=== PATIENT | female | born 1945 | race Caucasian/White ===

== ENCOUNTER 2018-03-10 14:11 | Inpatient (IN) ==
--- NOTE | 2018-03-10 14:55 | Emergency Department Note ---
Disposition Clinical Impression: Lymphadenopathy, mediastinal, Mass of left lung Community acquired pneumonia Qualifiers: Laterality: left Lung location: upper lobe of lung Qualified Code(s): J18.1 - Lobar pneumonia, unspecified organism Disposition: Admitted As Inpatient Condition: Good Referrals: Anmol Dee DO [Primary Care Provider] - Forms: ED Satisfaction Letter Time of Disposition: 17:23 General Adult HPI - General Chief complaint: ED Shortness of Breath/Dyspnea Stated complaint: cough Time Seen by Provider: 03/10/18 14:15 Source: patient Mode of arrival: ambulatory Limitations: no limitations Nursing Notes Reviewed: Yes Vital Signs Reviewed: Yes - History of Present Illness HPI Narrative: Female patient with a one-month history of cough. She states that it is generally nonproductive however occasionally she can get a small amount of sputum up. She states that she has not had a fever. She has had one episode of chills throughout this whole month. She does report over the past week she has had some left-sided chest pain associated with her shortness of breath as well. She denies any cardiac history. She does report a history only of hypercholesterolemia. She denies any recent travels. She denies any estrogen use. She is not a smoker. She states that ambulating does not make it worse. However occasionally whenever she leans back on the bed she does have the left- sided chest pain reproduced. She has not tried anything to make this better. Nothing really makes it worse. Pain Scale: 9 - Related Data Home Medications Medication Instructions Recorded Confirmed Amitriptyline [Elavil] 50 mg PO HS 05/05/16 07/14/16 Simvastatin [Zocor] 40 mg PO HS 05/05/16 07/14/16 Rhinocort Allergy 2 spray IN DAILY 07/14/16 07/14/16 Amitriptyline 05/21/17 Aspirin 05/21/17 Biotin 05/21/17 Calcium Magnesium Zinc 05/21/17 Cinnamon 05/21/17 Cipro 05/21/17 DiphenhydraMINE 05/21/17 Fish Oil 05/21/17 Fluticasone Propionate 05/21/17 Garlic 05/21/17 Ginkgo Biloba 05/21/17 Ketoconazole 2% CRM 05/21/17 Nexium 05/21/17 Vitamin D3 05/21/17 Vitamin E 05/21/17 Zyrtec 05/21/17 Previous Rx's Medication Instructions Recorded Sulfamethoxazole/Trimeth DS 1 each PO BID #14 tablet 03/28/17 [Bactrim DS] Acetaminophen [Tylenol] 500 mg PO Q6HR PRN #20 tablet 05/21/17 Acyclovir [Zovirax] 800 mg PO 5XD 7 Days #35 tablet 05/21/17 Capsaicin [High Potency Capsaicin] 42.5 gm TP BID #1 cream..g. 05/21/17 Allergies Allergy/AdvReac Type Severity Reaction Status Date / Time itraconazole [From Sporanox] Allergy Hives/ hot Verified 03/10/18 14:14 All systems ED: reviewed and negative except as stated. Review of Systems: As Per HPI Constitutional: Reports: chills (Occasional.). Denies: fever Cardiovascular: Reports: chest pain (Left-sided for the past week. Associated with taking a deep breath.). Denies: palpitations, dyspnea on exertion, syncope Respiratory: Reports: cough (Occasional.), dyspnea (For the past month.), sputum production (Occasional.) Gastrointestinal: Denies: abdominal pain, nausea, vomiting, diarrhea Genitourinary: Denies: urgency, dysuria, frequency, hematuria Musculoskeletal: Denies: back pain, neck pain Neurological: Denies: headache Past Medical History - Past Medical History Attestation: Yes The following information was validated with the patient. Source: patient Medical history: Reports: hyperlipidemia Surgical history: Reports: IDALMIS/BSO Psychiatric history: Reports: no psych history WAREHOUSE ENGINEER history: Reports: no WAREHOUSE ENGINEER history - Social History Smoking Status: Never smoker Smokeless Tobacco Status: No Alcohol use: Reports: none Drug use: Reports: none Physical Exam - General Limitations: no limitations General appearance: alert, in no apparent distress - Head Head exam: atraumatic, normocephalic, normal inspection - Eye Eye exam: Present: normal appearance, PERRL, EOMI - ENT ENT exam: normal exam, normal oropharynx, mucous membranes moist - Neck Neck exam: Present: normal inspection, full ROM, trachea midline - Chest Chest inspection: Present: normal inspection, symmetric chest wall rise - Respiratory Respiratory exam: Present: normal lung sounds bilaterally. Absent: respiratory distress, accessory muscle use - Cardiovascular Cardiovascular exam: Present: regular rate, normal rhythm, normal heart sounds - Abdominal Exam Abdominal exam: Present: soft, Non-Tender. Absent: tenderness, distention, guarding, rebound, rigidity, organomegaly, Aelgria's sign, Rovsing's sign, tenderness at McBurney's Point - Extremities Exam Extremities exam: Present: normal inspection, full ROM, normal capillary refill. Absent: tenderness, pedal edema - Neurological Exam Neurological exam: Present: alert, oriented X3 - Psychiatric Psychiatric exam: Present: normal affect, normal mood - Skin Skin exam: Present: warm, dry, intact, normal color. Absent: rash, cyanosis, diaphoresis Course Course Narrative: Female patient resting comfortably in bed and does not appear to be in any distress. Lung sounds are clear bilaterally. No wheezing noted. She is not tachycardic. She is not currently on any type of estrogen therapy. However p atient cannot be worked negative that she is over 65. Patient appears well with no history of DVT or PE. No history of long travel. We will get a basic lab workup on patient inclusive of a d-dimer which was elevated. We discussed this with the patient and will get a CTA of patient's chest. Patient does have a pneumonia on the x-ray however this is concerning at states is a wedge-shaped pattern. We will continue with the CTA to further investigate for pulmonary embolus. - Reevaluation(s) Reevaluation #1: Patient CT concerning for atypical pneumonia with loculated lesions. Concern for possible mass under this area. We will admit patient to hospital for further evaluation of this and to ensure resolution of her symptoms. She is agreeable with this plan. Patient was placed on cefepime for atypical coverage of the pneumonia. - Consultations Consultation #1: Dr Machado accepted Pt in stable condition Time: 17:39 Vital Signs Temperature 98.5 F 03/10/18 14:12 Pulse Rate 92 03/10/18 14:12 Respiratory Rate 18 03/10/18 14:12 Blood Pressure 163/78 03/10/18 14:12 O2 Sat by Pulse Oximetry 95 03/10/18 14:12 Temperature 98.5 F 03/10/18 14:19 Pulse Rate 79 03/10/18 16:15 Respiratory Rate 18 03/10/18 16:15 Blood Pressure 148/72 03/10/18 16:15 O2 Sat by Pulse Oximetry 100 03/10/18 16:15 Oxygen Delivery Oxygen Delivery Room Air Medical Decision Making - Medical Records Medical records reviewed: Yes I reviewed the patient's medical records. - Lab Data Lab results reviewed: Yes I reviewed the patient's lab results. Result diagrams: 03/10/18 14:45 03/10/18 14:45 Lab Results 03/10/18 03/10/18 03/10/18 Range/Units 14:45 14:45 14:45 WBC 8.9 (4.3-11.1) K/mcL RBC 3.86 (3.82-4.97) M/mcL Hgb 10.2 L (11.5-15.4) g/dL Hct 32.4 L (35.3-44.9) % MCV 83.9 (83.0-100.0) fL MCH 26.4 L (28.0-33.3) pg MCHC 31.5 L (31.6-35.5) g/dL RDW 13.5 (11.5-14.5) % Plt Count 278 (140-400) K/mcL MPV 9.4 (9.4-12.4) fL Immature Gran % 0.6 (0-4) % Seg Neutrophils % 81.9 % Lymphocytes % 10.6 % Monocytes % 5.3 % Eosinophils % 1.1 % Basophils % 0.5 % Neutrophils # 7.3 (1.6-8.9) K/mcL Lymphocytes # 0.9 (0.6-4.6) K/mcL Monocytes # 0.5 (0.0-1.3) K/mcL Eosinophils # 0.1 (0.0-0.6) K/mcL Basophils # 0.0 (0.0-0.2) K/mcL D-Dimer 1211 H (0-500) ng/mLFEU Sodium 137 (136-145) mEq/L Potassium 3.6 (3.5-5.1) mEq/L Chloride 102 (98-107) mEq/L Carbon Dioxide 27 (23-29) mEq/L BUN 10 (8-23) mg/dL Creatinine 0.76 (0.60-1.20) mg/dL Est GFR ( Amer) > 60 (> 60) Est GFR (Non-Af Amer) > 60 (> 60) BUN/Creatinine Ratio 13 (6-26) Glucose 148 H (70-105) mg/dL Calculated Osmolality 286 (280-300) Lactic Acid (0.5-2.2) mmol/L Calcium 8.9 (8.6-10.3) mg/dL Troponin I < 0.03 (< 0.04) ng/mL B-Natriuretic Peptide (Less than 100) pg/mL 03/10/18 03/10/18 Range/Units 14:45 14:45 WBC (4.3-11.1) K/mcL RBC (3.82-4.97) M/mcL Hgb (11.5-15.4) g/dL Hct (35.3-44.9) % MCV (83.0-100.0) fL MCH (28.0-33.3) pg MCHC (31.6-35.5) g/dL RDW (11.5-14.5) % Plt Count (140-400) K/mcL MPV (9.4-12.4) fL Immature Gran % (0-4) % Seg Neutrophils % % Lymphocytes % % Monocytes % % Eosinophils % % Basophils % % Neutrophils # (1.6-8.9) K/mcL Lymphocytes # (0.6-4.6) K/mcL Monocytes # (0.0-1.3) K/mcL Eosinophils # (0.0-0.6) K/mcL Basophils # (0.0-0.2) K/mcL D-Dimer (0-500) ng/mLFEU Sodium (136-145) mEq/L Potassium (3.5-5.1) mEq/L Chloride (98-107) mEq/L Carbon Dioxide (23-29) mEq/L BUN (8-23) mg/dL Creatinine (0.60-1.20) mg/dL Est GFR ( Amer) (> 60) Est GFR (Non-Af Amer) (> 60) BUN/Creatinine Ratio (6-26) Glucose (70-105) mg/dL Calculated Osmolality (280-300) Lactic Acid 1.0 (0.5-2.2) mmol/L Calcium (8.6-10.3) mg/dL Troponin I (< 0.04) ng/mL B-Natriuretic Peptide 52 (Less than 100) pg/mL - Radiology Data Radiology results reviewed: Yes I reviewed the patient's radiology results. Chest X-Ray 03/10/18 14:54 IMPRESSION: Left upper lobe pneumonia. Follow-up is recommended to ensure resolution D/ / Artie Lala MD / Artie Lala MD Interpreting Provider: Artie Lala MD - EKG Data EKG #1 EKG attestation: Yes I reviewed and interpreted this EKG. EKG results narrative: Normal sinus rhythm at a rate 85. IN interval is 148. QRS duration is 83. QT is 360. QTC is 428. No signs of acute ischemia. No signs of Brugada or WPW. No previous EKG to compare to. Attestation Statement - Attestation Attestation: I examined this patient and my medical decision-making was reviewed with the Resident Physician, Dr. Glaser. I agree with the documented findings, disposition and treatment plan as described except to the extent set forth below. Patient is a pleasant 72-year-old white female nonsmoker who presents the emergency permit today with complaints of a one-month history of cough. Patient states his been nonproductive started out as a "tickle in her throat", has progressed to a pretty regular coarse sounding cough area patient denies any fevers or chills, no preceding URI symptoms, no associated chest pain but she does feel some pain in her left posterior chest wall worse with coughing. Patient denies any hemoptysis or posttussive emesis. Patient denies any abdominal pain nausea vomiting bowel changes no flank pain. Patient denies any lower extremity edema or pain. No prior history of PE or DVT and no prior card iac history. Patient is fairly healthy with the exception of a history of high cholesterol. I agree with patient's physical exam findings as documented. Vital signs are stable on arrival patient's resting comfortably in no acute distress lungs are clear and she is having no signs of respiratory distress or stridor. EKG shows normal sinus rhythm with no acute ischemia. Patient underwent full lab evaluation including troponin and d-dimer. Patient's d-dimer was significantly elevated so we proceeded with a chest CT. Two-view chest x-ray did show what looked like a left upper lobe pneumonia although patient's white count is within normal limits and remainder of her labs are unremarkable. Patient's CTA showed findings concerning for possible lung mass with associated phlegmonous changes in the left lower lobe and both hilar and mediastinal adenopathy. Recommend PET scan and further evaluation for possible lung mass. Patient's hemodynamically stable at this time and no sign of respira tory distress, patient will be admitted to the hospitalist service for further evaluation and management.
[2018-03-10 15:10] LABS: Basophils % 0.5 %; Eosinophils # 0.1 K/mcL (0.0-0.6); Eosinophils % 1.1 %; Hematocrit 32.4 % (35.3-44.9); Hemoglobin 10.2 g/dL (11.5-15.4); Immature Granulocytes % 0.6 % (0-4); Lymphocytes # 0.9 K/mcL (0.6-4.6); Lymphocytes % 10.6 %; Mean Corpuscular HGB Conc 31.5 g/dL (31.6-35.5); Mean Corpuscular Hemoglobin 26.4 pg (28.0-33.3); Mean Corpuscular Volume 83.9 fL (83.0-100.0); Mean Platelet Volume 9.4 fL (9.4-12.4); Monocytes # 0.5 K/mcL (0.0-1.3); Monocytes % 5.3 %; Neutrophils # 7.3 K/mcL (1.6-8.9); Platelet Count 278 K/mcL (140-400); Red Blood Count 3.86 M/mcL (3.82-4.97); Red Cell Distribution Width 13.5 % (11.5-14.5); Segmented Neutrophils % 81.9 %
[2018-03-10 15:33] LABS: BUN/Creatinine Ratio 13 (6-26); Blood Urea Nitrogen 10 mg/dL (8-23); Calcium 8.9 mg/dL (8.6-10.3); Carbon Dioxide 27 mEq/L (23-29); Chloride 102 mEq/L (98-107); Glucose 148 mg/dL (70-105); Osmolality,Calculated 286 (280-300); Potassium 3.6 mEq/L (3.5-5.1); Sodium 137 mEq/L (136-145); eGFR For Non-African Americans > 60 (> 60)
[2018-03-10] MEDS ORDERED: Isovue-370 500 ML INFUS..BTL IV ONE (15:33)
[2018-03-10 15:34] LABS: Troponin I < 0.03 ng/mL (< 0.04)
[2018-03-10] MEDS ORDERED: Cefepime HCl 1,000 MG in 0.9 % Sodium Chloride Mini Bag 100 ML IVPB STA (16:43)
--- NOTE | 2018-03-10 21:10 | Internal Med History&Physical ---
Date of Encounter: 03/10/18 Time of Encounter: 21:10 Internal Medicine - H&P: HPI Chief complaint: Cough History of present illness: Ms. Van is a 72 year old female with a past medical history of hypertension and GERD who presents to the ED due to complains of a one-month history of nonproductive cough. The reason for coming into the hospital today was that her cough has not been improving. She also notes pleuritic chest pain with deep inspiration for the past week. The pain is located between her left shoulder blade and spine. Patient denies any dyspnea or shortness of breath except after coughing fits but does report recent episodes of waking up in sweats. She is a past smoker with a 2 pack smoking history for approximately 24 years. Patient quit in March 2010. Patient denies any hemoptysis or weight loss. Patient had a breast screening in September 2017 which was negative for any malignancy. Patient noted to have an elevated d-dimer and a CTA of the chest was performed which demonstrated no evidence of PE, however a 3.8 cm left upper lobe cons olidation was noted with mediastinal and left hilar adenopathy. Labs were notable for absent leukocytosis and mild anemia. Patient states she is up-to-date on her colonoscopy screenings. Past Med Surg Social Fam HX - Past Medical History Medical history: arthritis, hyperlipidemia, hypertension, other Additional medical history: scoliosis Psychiatric history: no psych history - Past Surgical History Surgical History: IDALMIS/BSO Additional surgical history: tubal ligation - Social History Smoking Status: Former smoker Smokeless Tobacco Status: No Alcohol use: none, rarely Drug use: none - Family History Mother Living Status: Still Living Hx Family Cancer: Yes (leukemia, lymphoma, colon cancer) Internal Medicine - H&P: Meds Amitriptyline [Elavil] 50 mg PO HS 05/05/16 [History] Simvastatin [Zocor] 40 mg PO HS 05/05/16 [History] Rhinocort Allergy 2 spray IN DAILY 07/14/16 [History] Sulfamethoxazole/Trimeth DS [Bactrim DS] 1 each PO BID #14 tablet 03/28/17 [Rx] Acetaminophen [Tylenol] 500 mg PO Q6HR PRN #20 tablet 05/21/17 [Rx] Acyclovir [Zovirax] 800 mg PO 5XD 7 Days #35 tablet 05/21/17 [Rx] Amitriptyline 05/21/17 [History] Aspirin 05/21/17 [History] Biotin 05/21/17 [History] Calcium Magnesium Zinc 05/21/17 [History] Capsaicin [High Potency Capsaicin] 42.5 gm TP BID #1 cream..g. 05/21/17 [Rx] Cinnamon 05/21/17 [History] Cipro 05/21/17 [History] DiphenhydraMINE 05/21/17 [History] Fish Oil 05/21/17 [History] Fluticasone Propionate 05/21/17 [History] Garlic 05/21/17 [History] Ginkgo Biloba 05/21/17 [History] Ketoconazole 2% CRM 05/21/17 [History] Nexium 05/21/17 [History] Vitamin D3 05/21/17 [History] Vitamin E 05/21/17 [History] Zyrtec 05/21/17 [History] Allergy/AdvReac Type Severity Reaction Status Date / Time itraconazole [From Sporanox] Allergy Hives/ hot Verified 03/10/18 14:14 All Systems PM: A 10-system review of systems was performed and is negative for pertinent findings except as documented above in the HPI. - Constitutional Constitutional: no chills, no fever(s), no night sweats - EENT Eyes: no change in vision, no discharge, no pain, no photophobia Ears: no ear discharge, no ear pain, no tinnitus Nose, mouth and throat: no dysphagia, no nasal discharge, no neck pain, no sore throat - Cardiovascular Cardiovascular ROS IM: no chest pain, no diaphoresis, no dyspnea, no lightheadedness, no palpitations, no syncope - Respiratory Respiratory: no cough, no dyspnea, no wheezing, no excessive phlegm production - Gastrointestinal Gastrointestinal: no abdominal pain, no diarrhea, no hematemesis, no hematochezia, no melena, no nausea, no vomiting - Genitourinary Genitourinary: no change in urinary stream, no dysuria, no flank pain, no hematuria - Musculoskeletal Musculoskeletal ROS IM: no numbness, no tingling - Integumentary Integumentary IM: no rash, no unusual bruising - Neurological Neurological ROS: no confusion, no convulsions, no focal weakness, no numbness, no tingling, no tremor(s) - Hematologic/Lymphatic Hematologic/Lymphatic: no easy bruising - Constitutional Vitals: Temp Pulse Resp BP Pulse Ox 98.3 F 86 16 147/74 95 03/10/18 20:04 03/10/18 20:04 03/10/18 20:04 03/10/18 20:04 03/10/18 20:04 Exam: General: Alert and oriented 3; lying in bed pleasant and in no acute distress Skin:Normal color, no rash, no lesions. HEENT:EOM, pupils equal, round and reactive. Cardiovascular:Normal S1 & S2, no rubs, murmurs or gallops. No JVD. Pulse regular. Lungs:Normal breath sounds, no wheezes or crackles. Abdomen:Soft, non-tender, no rigidity. Extremities:No deformity, no edema or tenderness, no joint swelling or clubbing. Neurological:Normal cognition and motor skills. Pulses:Carotid and radial pulses normal +2. Rest of the physical exam is non contributory Internal Med - H&P Results - Labs CBC & Chem 7: 03/10/18 14:45 03/10/18 14:45 Labs: Short CBC 03/10/18 Range/Units 14:45 WBC 8.9 (4.3-11.1) K/mcL Hgb 10.2 L (11.5-15.4) g/dL Hct 32.4 L (35.3-44.9) % Plt Count 278 (140-400) K/mcL Neutrophils # 7.3 (1.6-8.9) K/mcL BMP 03/10/18 14:45 Sodium 137 Potassium 3.6 Chloride 102 Carbon Dioxide 27 BUN 10 Creatinine 0.76 Glucose 148 H Calcium 8.9 Cardiac Enzymes 03/10/18 Range/Units 14:45 Troponin I < 0.03 (< 0.04) ng/mL - Impressions ITS Impressions Chest X-Ray 03/10/18 14:54 IMPRESSION: Left upper lobe pneumonia. Follow-up is recommended to ensure resolution D/ / Artie Lala MD / Artie Lala MD Interpreting Provider: Artie Lala MD Chest CTA 03/10/18 15:33 IMPRESSION: No evidence pulmonary embolism. Small left pleural effusion with multifocal left lung consolidation, greatest in the left upper lobe. There is an area of soft tissue attenuation/masslike consolidation within left upper lobe consolidation measuring about 3.8 cm without traversing vessels; although this could represent phlegmonous change, short interval follow-up following treatment versus PET-CT could be considered. Mediastinal and left hilar adenopathy. D/ / Guera Wright Cha, MD / Guera Wright Cha, MD Interpreting Provider: Guera Wright Cha, MD - Assessment and plan (1) Cough Current Visit: Yes Status: Acute Assessment and plan: Patient presents with one-month history of nonproductive cough and has not been improving associated with one week history of pleuritic chest pain with deep inspiration located between left scapula and spine. Patient has no fever but does report several episodes of waking up with night sweats. Absent leukocytosis. CT scan of the chest reveals a small left pleural effusion with multifocal left lung consolidation latest in the left upper lobe measuring about 3.8 cm and mediastinal and left hilar adenopathy. Given the chronicity of the patient's symptoms and absent fever and white count I have low suspicion for pneumonia at this time. It may be some other form of atypical infection. However, given patient's significant past smoking history, pleuritic chest pain, recent episodes of night sweats and CT scan findings, I am concerned for pos sible underlying malignancy. Patient received 1 dose of cefepime in the ED. At this time we will hold off any further antibiotics. We will obtain pulmonary consultation for further evaluation. We will follow both blood cultures in the meantime as well. (2) Mass of left lung Current Visit: Yes Status: Acute Assessment and plan: CT scan shows left upper lobe consolidation measuring about 3.8 cm without transversing vessels. Per radiology this may be also represent phlegmonous change PET/CT in addition to short interval follow-up recommended. See above for plan of care. (3) Lymphadenopathy, mediastinal Current Visit: Yes Status: Acute Assessment and plan: Please see above. (4) DVT prophylaxis Current Visit: Yes Status: Acute Assessment and plan: Subcutaneous heparin - Time Spent With Patient Total time spent is greater than 50% in coordination of care (as documented) at patient's floor/unit and/or counseling patient:
[2018-03-10] MEDS ORDERED: Acetaminophen 325 MG TABLET PO PRN (21:52)
[2018-03-10] MEDS ORDERED: Naloxone 0.4 MG/ML INJ IVP PRN (21:52)
[2018-03-10] MEDS: *HR* Heparin 5,000 UNIT/ML VIAL SQ SCH (23:01)
[2018-03-11 03:25] LABS: Basophils % 0.3 %; Eosinophils # 0.1 K/mcL (0.0-0.6); Hematocrit 31.5 % (35.3-44.9); Hemoglobin 10.1 g/dL (11.5-15.4); Immature Granulocytes % 0.6 % (0-4); Lymphocytes # 1.3 K/mcL (0.6-4.6); Lymphocytes % 12.4 %; Mean Corpuscular HGB Conc 32.1 g/dL (31.6-35.5); Mean Corpuscular Hemoglobin 26.5 pg (28.0-33.3); Mean Corpuscular Volume 82.7 fL (83.0-100.0); Mean Platelet Volume 9.5 fL (9.4-12.4); Monocytes # 0.6 K/mcL (0.0-1.3); Monocytes % 5.7 %; Neutrophils # 8.1 K/mcL (1.6-8.9); Platelet Count 298 K/mcL (140-400); Red Blood Count 3.81 M/mcL (3.82-4.97); Red Cell Distribution Width 13.6 % (11.5-14.5)
[2018-03-11 03:44] LABS: Alanine Aminotransferase 36 Units/L (7-52); Albumin 3.7 g/dL (3.5-5.7); Albumin/Globulin Ratio 1.2 (1.1-2.2); Alkaline Phosphatase 112 Units/L (34-104); Aspartate Amino Transferase 24 Units/L (13-39); BUN/Creatinine Ratio 16 (6-26); Bilirubin,Total 0.4 mg/dL (0.3-1.0); Blood Urea Nitrogen 11 mg/dL (8-23); Carbon Dioxide 23 mEq/L (23-29); Chloride 102 mEq/L (98-107); Globulin 3.2 g/dL (2.4-3.5); Glucose 131 mg/dL (70-105); Osmolality,Calculated 281 (280-300); Potassium 3.5 mEq/L (3.5-5.1); Sodium 135 mEq/L (136-145); Total Protein 6.9 g/dL (6.4-8.9); eGFR For Non-African Americans > 60 (> 60)
[2018-03-11] MEDS: *HR* Heparin 5,000 UNIT/ML VIAL SQ SCH ×3 (08:07→23:52)
--- NOTE | 2018-03-11 09:38 | Pulmonology Consult Note ---
Date of Encounter: 03/11/18 Time of Encounter: 09:00 Assessment and Plan (1) Pneumonia Current Visit: Yes Status: Acute Patient presenting with left upper lobe consolidation looks like lung mass in the midst of consolidation. To continue broad-spectrum antibiotics depends upon the clinical response will soon de-escalate antibiotics. Since this recurrent acute presentation and patient has chronic cough loss of appetite concerned for malignancy as patient has background emphysematous changes with former smoker . Patient was not nothing by mouth today and was evident in a bronchoscopy. We will discuss with oncoming tie worker about bronchoscopy we will keep her nothing by mouth after midnight put her on the schedule. Qualifiers: Pneumonia type: due to unspecified organism Laterality: left Lung location: upper lobe of lung Qualified Code(s): J18.1 - Lobar pneumonia, unspecified organism (2) Mass of left lung Current Visit: Yes Status: Acute Patient has risk factors for malignancy we will keep her nothing by mouth after midnight for bronchoscopy in the morning . Gave options to patient to wait for 2 weeks after pneumonia treatment on proceed with bronchoscopy at this point patient opted to undergo bronchoscopy tomorrow and she would like to get dis charge. The benefit and risk of bronchoscopy was explained.. (3) COPD (chronic obstructive pulmonary disease) Current Visit: Yes Status: Acute Patient has centrilobular emphysematous changes with need schedule bronchodilators since patient has some mild wheezes will add a short burst of prednisone. 5 days Qualifiers: COPD type: emphysema Emphysema type: centrilobular Qualified Code(s): J43.2 - Centrilobular emphysema History of Present Illness Consult date: 03/11/18 Requesting physician: Anthony Garrison Reason for consult: pneumonia, abnormal CXR/CT Chief complaint: Cough and chest pain History of present illness: 72-year-old female with past medical history for former smoker smoked 40 pack years stopped in 2009 comes with 1 month history of cough more worsen 2-3 weeks he says the cough got worse and over the past month not much sputum production denies any hemoptysis of 34 days her left-sided chest pain got worse and brought to the hospital CTA showed no does not pulmonary embolism showed left upper lobe apical posterior region a big mass like consolidation pulmonary was consult did for the evaluation mass like consolidation patient also admits some loss of appetite not much loss of weight denies any constitutional symptoms denies any palpitation or syncope denies any GERD or neuro symptoms denies any headache or eye symptoms. Past Med Surg Social Fam HX - Past Medical History Medical history: arthritis, hyperlipidemia, hypertension, other Additional medical history: scoliosis Psychiatric history: no psych history - Past Surgical History Surgical History: IDALMIS/BSO Additional surgical history: tubal ligation - Social History Smoking Status: Former smoker Smokeless Tobacco Status: No Alcohol use: none, rarely Drug use: none - Family History Mother Living Status: Still Living Hx Family Cancer: Yes (leukemia, lymphoma, colon cancer) Medications and Allergies Amitriptyline [Elavil] 50 mg PO HS 03/11/18 [History] Esomeprazole Magnesium [Nexium] 20 mg PO HS 03/11/18 [History] Ketotifen Fumarate [Eye Itch Relief] 5 ml OP BID 03/11/18 [History] Simvastatin [Zocor] 40 mg PO HS 03/11/18 [History] Triamcinolone Acetonide [Nasacort] 2 spray NS HS 03/11/18 [History] Allergy/AdvReac Type Severity Reaction Status Date / Time itraconazole [From Sporanox] Allergy Hives/ hot Verified 03/10/18 14:14 All Systems: The remainder of the systems were reviewed and are negative Physical Examination Vital Signs: Vital Signs, Last 4 Hours Temp Pulse Resp BP Pulse Ox 03/11/18 08:24 92 03/11/18 07:37 99.2 F 92 18 148/65 92 Auscultation: bilateral: wheezes (mimimal scattered wheezes) Results - Laboratory Findings CBC and BMP: 03/11/18 02:45 03/11/18 02:45 PT/INR, D-dimer D-Dimer 1211 ng/mLFEU (0-500) H 03/10/18 14:45 Abnormal lab findings: Abnormal lab results RBC 3.81 M/mcL (3.82-4.97) L 03/11/18 02:45 Hgb 10.1 g/dL (11.5-15.4) L 03/11/18 02:45 Hct 31.5 % (35.3-44.9) L 03/11/18 02:45 MCV 82.7 fL (83.0-100.0) L 03/11/18 02:45 MCH 26.5 pg (28.0-33.3) L 03/11/18 02:45 D-Dimer 1211 ng/mLFEU (0-500) H 03/10/18 14:45 Sodium 135 mEq/L (136-145) L 03/11/18 02:45 Glucose 131 mg/dL (70-105) H 03/11/18 02:45 Alkaline Phosphatase 112 Units/L (34-104) H 03/11/18 02:45 - Microbiology Findings Microbiology Findings: Microbiology, Last 48 Hours 03/10/18 17:50 Blood Culture - Preliminary Peripheral Venipuncture Culture is incubating and being continuously monitored for growth. Final report to follow. 03/10/18 17:55 Blood Culture - Preliminary Peripheral Venipuncture Culture is incubating and being continuously monitored for growth. Final report to follow. - Clinical Findings Intake & Output: Intake & Output 03/10/18 03/11/18 03/11/18 23:59 07:59 15:59 Intake Total 550 / 550 240 / 240 Output Total 750 / 750 0 / 0 Balance 550 / 550 -750 / -750 240 / 240 Weight 62.1 kg 59.7 kg Consult Discharge Plan - Plan Referrals: Anmol Dee DO [Primary Care Provider] -
--- NOTE | 2018-03-11 11:28 | Internal Med Progress Note ---
Hospitalist Progress Note - Encounter Date of Encounter: 03/11/18 Time of Encounter: 11:21 - Subjective Interval History: Mrs. Van is a 71-year-old female patient who was admitted for community- acquired pneumonia, increased dyspnea shortness of breath. Through general workup CT of the chest was positive for a small left pleural effusion with multifocal left lung consolidation greatest in the left upper lobe. Also was a soft tissue masslike consolidation within the left upper lobe, measuring 3.8 cm without transversing vessel. She has been consulted per pulmonology Dr. Killian today. He is moving forward with bronchoscopy tomorrow morning patient will be made nothing by mouth after 12 midnight today. The spleen is been discussed with the patient and she is agreeable to move forward plans will be post bronchoscopy for discharge home with follow-up with primary care and pulmonology and 2-3 weeks Today she states that she is breathing much better coughing less and having less left back pain. She denies any shortness of breath, dyspnea, coughing up of blood, dizziness, or chest pain. She is resting comfortably in interview was completed at bedside, with no additional complaints. She states that her immunizations are up to date for both pneumococcal vaccine and influenza vaccine for this year. - Exam Vitals: Temp Pulse Resp BP Pulse Ox 99.2 F 92 18 148/65 92 03/11/18 07:37 03/11/18 07:37 03/11/18 07:37 03/11/18 07:37 03/11/18 08:24 Exam: low grade fever 99, will continue to monitor - Assessment and Plan (1) Lymphadenopathy, mediastinal Current Visit: Yes Status: Acute Assessment and Plan: Scheduled for bronchoscope, in AM, with planned discharge post op to home Will continue with PO ATB, and f/u with Dr. Killian as outpatient (2) Mass of left lung Current Visit: Yes Status: Acute Assessment and Plan: as above Scheduled for NPO after MN for procedure in AM (3) Cough Current Visit: Yes Status: Acute Assessment and Plan: improving with ATB therapy Will continue wtih IV ATB, oxygen as needed (4) DVT prophylaxis Current Visit: Yes Status: Acute Assessment and Plan: Continue with heparin per protocol - Time Spent with Patient Total time spent is greater than 50% in coordination of care (as documented) at patient's floor/unit and/or counseling patient: less than 15 minutes Plan of Care Discussed with: patient Internal Medicine: Result - Labs CBC & Chem 7: 03/11/18 02:45 03/11/18 02:45 Labs: Short CBC 03/10/18 03/11/18 Range/Units 14:45 02:45 WBC 8.9 10.1 (4.3-11.1) K/mcL Hgb 10.2 L 10.1 L (11.5-15.4) g/dL Hct 32.4 L 31.5 L (35.3-44.9) % Plt Count 278 298 (140-400) K/mcL Neutrophils # 7.3 8.1 (1.6-8.9) K/mcL BMP 03/10/18 03/11/18 14:45 02:45 Sodium 137 135 L Potassium 3.6 3.5 Chloride 102 102 Carbon Dioxide 27 23 BUN 10 11 Creatinine 0.76 0.69 Glucose 148 H 131 H Calcium 8.9 9.0 Cardiac Enzymes 03/10/18 Range/Units 14:45 Troponin I < 0.03 (< 0.04) ng/mL Liver Function 03/11/18 Range/Units 02:45 Total Bilirubin 0.4 (0.3-1.0) mg/dL AST 24 (13-39) Units/L ALT 36 (7-52) Units/L Alkaline Phosphatase 112 H (34-104) Units/L Albumin 3.7 (3.5-5.7) g/dL - ABG Interpretation ABG results: PT/INR, D-dimer D-Dimer 1211 ng/mLFEU (0-500) H 03/10/18 14:45 - Impressions Impressions Chest X-Ray 03/10/18 14:54 IMPRESSION: Left upper lobe pneumonia. Follow-up is recommended to ensure resolution D/ / Artie Lala MD / Artie Lala MD Interpreting Provider: Artie Lala MD Chest CTA 03/10/18 15:33 IMPRESSION: No evidence pulmonary embolism. Small left pleural effusion with multifocal left lung consolidation, greatest in the left upper lobe. There is an area of soft tissue attenuation/masslike consolidation within left upper lobe consolidation measuring about 3.8 cm without traversing vessels; although this could represent phlegmonous change, short interval follow-up following treatment versus PET-CT could be considered. Mediastinal and left hilar adenopathy. D/ / Guera Wright Cha, MD / Guera Wright Cha, MD Interpreting Provider: Guera Wright Cha, MD Consult Discharge Plan - Plan Referrals: Anmol Dee DO [Primary Care Provider] -
[2018-03-11] MEDS ORDERED: Albuterol 2.5 MG/3 ML NEBULIZER IH PRN (15:40)
[2018-03-11] MEDS: predniSONE 20 MG TABLET PO SCH (15:42)
[2018-03-12 03:39] LABS: INR 1.3; Prothrombin Time 14.5 Seconds (9.4-12.1)
--- NOTE | 2018-03-12 07:07 | Pulmonology Progress Note ---
Date of Encounter: 03/12/18 Time of Encounter: 07:06 Assessment and Plan (1) Pneumonia Current Visit: Yes Status: Acute This pleasant 72-year-old woman in former smoker presenting with COPD exacerbation secondary to pneumonia likely superimposed upon underlying lung mass which is concerning for primary lung neoplasm. I favor treating upfront for pneumonia and repeating CT scan to see what to underlying lymphadenopathy is likely at that time because type of bronchoscopy that could be employed such as endobronchial ultrasound with fine-needle aspiration coupled with navigation bronchoscopy may be a more appropriate modality of tissue diagnosis but this will hinge upon what persistent radiological features are present. I discussed with the patient and she is in agreement with plan she says she will follow-up in pulmonary clinic at discharge.. Recs: -No bronchoscopy this morning from pulmonary perspective this will be scheduled an outpatient after repeat CT scan -Agree with short burst of prednisone 40 mg for 5 days -Patient can be transitioned to oral antibiotics to complete a 7 day course such as a respiratory fluoroquinolone (Levaquin) -Repeat his CT scan of the next 2-4 weeks and she will need outpatient pulmonary follow-up within 2 weeks -Start Symbicort 160/4.5 patient should be discharged with this along with a short acting beta agonist such as Proair to be used on an as-needed basis -From pulmonary perspective she is approaching discharge criteria we will defer to primary hospitalist service she is anxious to go home however Thank you for this consultation pulmonary will follow up in clinic Qualifiers: Pneumonia type: due to unspecified organism Laterality: left Lung location: upper lobe of lung Qualified Code(s): J18.1 - Lobar pneumonia, unspecified organism (2) Mass of left lung Current Visit: Yes Status: Acute (3) COPD exacerbation Current Visit: Yes Status: Acute Subjective Principal diagnosis: Pneumonia Interval history: No acute events overnight patient remains hemodynamically stable. She is feeling a little bit better. She is anxious to go home Objective PUL Vital signs: Last Vital Signs Temp 97.8 F 03/12/18 03:04 Pulse 80 03/12/18 03:04 Resp 14 03/12/18 03:04 BP 135/78 03/12/18 03:04 Pulse Ox 98 03/12/18 03:04 General appearance: no acute distress Eyes: nonicteric ENT: oropharynx moist Neck: supple Auscultation: left: diminished breath sounds, right: clear Cardiovascular: regular rate and rhythm Gastrointestinal: normoactive bowel sounds, soft, non-tender Integumentary: normal Extremities: no cyanosis, no edema, no clubbing Musculoskeletal: no deformities normal mental status, non-focal exam mood appropriate Results - Laboratory Findings CBC and BMP: 03/11/18 02:45 03/11/18 02:45 PT/INR, D-dimer PT 14.5 Seconds (9.4-12.1) H 03/12/18 02:49 D-Dimer 1211 ng/mLFEU (0-500) H 03/10/18 14:45 Abnormal lab findings: Abnormal lab results RBC 3.81 M/mcL (3.82-4.97) L 03/11/18 02:45 Hgb 10.1 g/dL (11.5-15.4) L 03/11/18 02:45 Hct 31.5 % (35.3-44.9) L 03/11/18 02:45 MCV 82.7 fL (83.0-100.0) L 03/11/18 02:45 MCH 26.5 pg (28.0-33.3) L 03/11/18 02:45 PT 14.5 Seconds (9.4-12.1) H 03/12/18 02:49 D-Dimer 1211 ng/mLFEU (0-500) H 03/10/18 14:45 Sodium 135 mEq/L (136-145) L 03/11/18 02:45 Glucose 131 mg/dL (70-105) H 03/11/18 02:45 Alkaline Phosphatase 112 Units/L (34-104) H 03/11/18 02:45 - Microbiology Findings Microbiology Findings: Microbiology, Last 48 Hours 03/10/18 17:50 Blood Culture - Preliminary Peripheral Venipuncture Culture is incubating and being continuously monitored for growth. Final report to follow. 03/10/18 17:55 Blood Culture - Preliminary Peripheral Venipuncture Culture is incubating and being continuously monitored for growth. Final report to follow. - Diagnostic Findings Chest x-ray: report reviewed, image reviewed CT scan - chest: report reviewed, image reviewed - Clinical Findings Intake & Output: Intake & Output 03/11/18 03/11/18 03/12/18 15:59 23:59 07:59 Intake Total 360 / 360 240 / 240 250 / 250 Output Total 0 / 0 400 / 400 Balance 360 / 360 -160 / -160 250 / 250 Weight 58.9 kg Consult Discharge Plan - Plan Referrals: Anmol Dee DO [Primary Care Provider] -
[2018-03-12] MEDS: predniSONE 20 MG TABLET PO SCH (07:20)
[2018-03-12] MEDS: *HR* Heparin 5,000 UNIT/ML VIAL SQ SCH (07:20)
[2018-03-12 07:47] VITALS: BP 147/75
--- NOTE | 2018-03-12 08:14 | Discharge Summary ---
- NOTES TO OUTPATIENT PROVIDER Notes to Outpatient Provider: Follow up with pulmonary in 2-4 weeks- repeat CT scn in 2-4 weeks- steroid burst and levaquin-. symbicort and Proair Orders not resulted at time of discharge: Pending orders 03/10/18 17:50 Culture,Blood [BC] Stat 03/12/18 08:09 CBC [Complete Blood Count] [HEME] Routine Chem 7 [Basic Metabolic Panel] Routine Date of Encounter: 03/12/18 Time of Encounter: 08:12 - Discharge Diagnosis (1) Lymphadenopathy, mediastinal Priority: Secondary Status: Acute (2) Mass of left lung Priority: Primary Status: Acute (3) Cough Priority: Secondary Status: Acute (4) Community acquired pneumonia Priority: Primary Status: Acute Qualifiers: Laterality: left Lung location: upper lobe of lung Qualified Code(s): J18.1 - Lobar pneumonia, unspecified organism Hospital course: Ms. Van is a 72 year old female past medical history former smoker arthritis hyperlipidemia hypertension presented to [facility] ED after experiencing one month history of cough however is worsened over the past 2-3 weeks she underwent a CTA which did not show any pulmonary embolism but did show left upper lobe apical posterior region masslike consolidation. She was initiated on empiric ATB coverage for community-acquired pneumonia as well as steroids and bronchodilators for COPD excerbation pulmonary was consulted not recommending a bronchoscopy at this time this should be scheduled as an outpatient after receiving a repeat CT scan. Pulmonary recommending continuing burst steroid treatment continuing with antibiotic oral treatment for 7 days recommending Symbicort as well as short-acting beta agonist on an as-needed basis. Currently patient does not appear to be respiratory distress no wheezing at this time-she is hemodynamically stable not requiring any oxygen support. Advised patient to follow up with pulmonary as outpatient as well as repeating CAT scan in a few weeks. Also advised patient follow with primary care provider. I did give patient prescription for Levaquin for next 7 days as well as Symbicort prednisone and pro-air. Patient verbalized understanding and she is ready for discharge Discharge discussed with: patient - Time Spent with Patient Total time spent providing and/or coordinating discharge services: - Discharge Medications Prescriptions: Albuterol Sulfate [Proair Hfa] 1 puff IH Q4-6H PRN #1 inh PRN Reason: Shortness Of Breath/Wheezing Budesonide/Formoterol 160/4.5 [Symbicort 160/4.5] 2 puff IH BIDR #1 inh levoFLOXacin [Levaquin] 500 mg PO DAILY #7 tablet predniSONE [PredniSONE] 40 mg PO DAILY 5 Days #10 tablet Home Medications: Amitriptyline [Elavil] 50 mg PO HS 03/11/18 [History] Esomeprazole Magnesium [Nexium] 20 mg PO HS 03/11/18 [History] Ketotifen Fumarate [Eye Itch Relief] 5 ml OP BID 03/11/18 [History] Simvastatin [Zocor] 40 mg PO HS 03/11/18 [History] Triamcinolone Acetonide [Nasacort] 2 spray NS HS 03/11/18 [History] Albuterol Sulfate [Proair Hfa] 1 puff IH Q4-6H PRN #1 inh 03/12/18 [Rx] Budesonide/Formoterol 160/4.5 [Symbicort 160/4.5] 2 puff IH BIDR #1 inh 03/12/18 [Rx] levoFLOXacin [Levaquin] 500 mg PO DAILY #7 tablet 03/12/18 [Rx] predniSONE [PredniSONE] 40 mg PO DAILY 5 Days #10 tablet 03/12/18 [Rx] Allergies/Adverse Reactions: Allergy/AdvReac Type Severity Reaction Status Date / Time itraconazole [From Sporanox] Allergy Hives/ hot Verified 03/10/18 14:14 Date of admission: 03/10/18 21:52 Primary care physician: Anmol Dee DO Consults: 03/10/18 21:55 Consult to Pulmonology [CONS] Routine Consulting Provider: [facility] Reason for Consult: Left upper lobe lung mass in a 72-year-old female with previous history of significant smoking. Rule out malignancy Call Completed: No Discharging clinician: Roxana House Anticipated date of discharge: 03/12/18 - Constitutional Vitals: Temp Pulse Resp BP Pulse Ox 97.7 F 75 16 147/75 99 03/12/18 07:44 03/12/18 07:44 03/12/18 07:50 03/12/18 07:44 03/12/18 07:50 Exam: . - Head Head exam: Present: atraumatic, normocephalic - Eye Eye exam: Present: PERRL, conjuntiva pink, sclera anicteric Pupils: Present: PERRL - Neck Neck exam general surgery: Present: supple, trachea midline. Absent: lymphadenopathy - Respiratory Respiratory exam: Present: CTAB. Absent: accessory muscle use, rales, rhonchi, wheezes - Cardiovascular Cardiovascular exam: Present: RRR, +S1, +S2. Absent: diastolic murmur, gallop, rubs, systolic murmur - GI/Abdominal GI/Abdominal exam: Present: normal bowel sounds, soft, no peritoneal signs. Absent: distended, tenderness - Extremities Exam Extremities exam: Present: warm, radial pulses palpable and symmetrical. Absent: calf tenderness, cyanotic, pedal edema - Neurological Exam Neurological exam: Present: CN II-XII intact, oriented X3, no focal deficits. Absent: pronater drift, facial droop, speech deficit - Skin Skin exam: Present: dry, intact - Patient Status Disposition: Home, Self-Care Condition: Good Functional capacity at discharge: independent ambulation Overall status at discharge: patient is back to baseline - Ambulatory Orders Ambulatory Orders: CT chest wo con [CT] Time Frame: 3 Weeks, Facility: [facility], Location: Radiology - Discharge Instructions Instructions: Chronic Obstructive Pulmonary Disease (DC), Pneumonia (DC) Follow Up With: Anmol Dee DO [Primary Care Provider] - (Please follow up with Primary care in 5-7 days. ) - Diet and Activity Activity: increase activity as tolerated Diet: advance to your usual diet
[2018-03-12 08:49] LABS: Basophils % 0.3 %; Eosinophils % 0.1 %; Hematocrit 37.7 % (35.3-44.9); Immature Granulocytes % 0.4 % (0-4); Lymphocytes # 1.4 K/mcL (0.6-4.6); Lymphocytes % 18.9 %; Mean Corpuscular Hemoglobin 25.9 pg (28.0-33.3); Mean Corpuscular Volume 83.4 fL (83.0-100.0); Mean Platelet Volume 9.4 fL (9.4-12.4); Monocytes # 0.5 K/mcL (0.0-1.3); Neutrophils # 5.4 K/mcL (1.6-8.9); Platelet Count 356 K/mcL (140-400); Red Blood Count 4.52 M/mcL (3.82-4.97); Red Cell Distribution Width 13.2 % (11.5-14.5); Segmented Neutrophils % 73.3 %
[2018-03-12 08:53] LABS: Hemoglobin 11.7 g/dL (11.5-15.4)
[2018-03-12 09:08] LABS: BUN/Creatinine Ratio 32 (6-26); Blood Urea Nitrogen 23 mg/dL (8-23); Calcium 9.8 mg/dL (8.6-10.3); Carbon Dioxide 26 mEq/L (23-29); Chloride 104 mEq/L (98-107); Glucose 129 mg/dL (70-105); Osmolality,Calculated 293 (280-300); Potassium 3.5 mEq/L (3.5-5.1); Sodium 139 mEq/L (136-145); eGFR For Non-African Americans > 60 (> 60)
[2018-03-12] MEDS ORDERED: Budesonide/Formoterol 160/4.5 1 PUFF INH IH SCH (10:00)
== END 2018-03-12 10:08 | disposition home or self-care (01) | DRG 194 ==
LOC: EMEROOARM 14:11 → 3BNU 14:11
PROVIDERS: ADMIT Internal Medicine; ATTEND Internal Medicine

== ENCOUNTER 2019-03-05 13:02 | Observation (INO) ==
[2019-03-05] MEDS ORDERED: Ondansetron ODT 4 MG TAB.RAPDIS SL ONE (13:23)
[2019-03-05] MEDS ORDERED: Ketorolac 15 MG/ML VIAL IVP ONE (13:23)
[2019-03-05] MEDS ORDERED: 0.9 % Sodium Chloride 1,000 ML IVC ONE (13:23)
[2019-03-05 14:03] LABS: Basophils % 0.2 %; Eosinophils % 0.1 %; Hematocrit 37.6 % (35.3-44.9); Hemoglobin 12.8 g/dL (11.5-15.4); Immature Granulocytes % 0.5 % (0-4); Lymphocytes # 0.4 K/mcL (0.6-4.6); Lymphocytes % 3.8 %; Mean Corpuscular Hemoglobin 28.9 pg (28.0-33.3); Mean Corpuscular Volume 84.9 fL (83.0-100.0); Monocytes # 0.2 K/mcL (0.0-1.3); Monocytes % 1.8 %; Neutrophils # 9.5 K/mcL (1.6-8.9); Platelet Count 212 K/mcL (140-400); Red Blood Count 4.43 M/mcL (3.82-4.97); Red Cell Distribution Width 13.4 % (11.5-14.5); Segmented Neutrophils % 93.6 %; White Blood Count 10.2 K/mcL (4.3-11.1)
[2019-03-05 14:34] LABS: Alanine Aminotransferase 22 Units/L (7-52); Albumin 4.4 g/dL (3.5-5.7); Albumin/Globulin Ratio 1.9 (1.1-2.2); Alkaline Phosphatase 86 Units/L (34-104); Aspartate Amino Transferase 21 Units/L (13-39); BUN/Creatinine Ratio 14 (6-26); Bilirubin,Total 0.7 mg/dL (0.3-1.0); Blood Urea Nitrogen 15 mg/dL (8-23); Calcium 9.5 mg/dL (8.6-10.3); Carbon Dioxide 22 mEq/L (23-29); Chloride 104 mEq/L (98-107); Globulin 2.3 g/dL (2.4-3.5); Glucose 135 mg/dL (70-105); Osmolality,Calculated 293 (280-300); Sodium 140 mEq/L (136-145); Total Protein 6.7 g/dL (6.4-8.9); eGFR For African Americans > 60 (> 60); eGFR For Non-African Americans 52 (> 60)
[2019-03-05 15:20] LABS: Bilirubin,Urine Negative (Negative); Blood,Urine Small (Negative); Clarity,Urine Cloudy (Clear); Color,Urine Yellow (Yellow); Glucose,Urine (UA) Normal (Normal); Ketones,Urine Negative (Negative); Leukocyte Esterase,Urine Small (Negative); Nitrite,Urine Positive (Negative); PH,Urine 7.5 pH Units (5.0-8.0); Protein,Urine Negative (Neg-Trace); Specific Gravity,Urine 1.013 (1.010-1.025); Urobilinogen,Urine Normal (Normal)
[2019-03-05 15:23] LABS: Bacteria,Urine Many per hpf (None-Few); Hyaline Casts,Urine None Seen per lpf (None-Few); Squamous Epithelial Cell,Urine Moderate per lpf (None-Few); WBC,Urine 30-50 per hpf (0-3)
[2019-03-05] MEDS ORDERED: cefTRIAXone 1,000 MG in Water for inj. (sterile) 10 ML IVP ONE (15:37)
[2019-03-05] MEDS ORDERED: Ondansetron ODT 4 MG TAB.RAPDIS SL PRN ×2 (16:18→19:04)
[2019-03-05] MEDS ORDERED: Naloxone 0.4 MG/ML INJ IVP PRN ×2 (16:18→19:04)
[2019-03-05] MEDS ORDERED: Famotidine 20 MG/2 ML VIAL ONE (16:32)
[2019-03-05] MEDS ORDERED: *HR* FentaNYL (PF) 100 MCG/2 ML VIAL ONE (16:53)
[2019-03-05] MEDS ORDERED: *HR* Propofol 200 MG/20 ML VIAL IVP ONE (16:53)
[2019-03-05] MEDS ORDERED: Isovue-300 50ML VIAL ONE (16:54)
[2019-03-05] MEDS ORDERED: Lidocaine -MPF 2% 2 ML VIAL ONE (17:03)
[2019-03-05] MEDS ORDERED: *HR* Metoprolol 5 MG/5 ML VIAL IVP ONE (17:05)
[2019-03-05] MEDS ORDERED: Ketorolac 30 MG/ML VIAL ONE (17:20)
[2019-03-05] MEDS ORDERED: Fluticasone Propionate Nasal 50 MCG/SPRAY BOTTLE NS SCH ×2 (21:00)
[2019-03-05] MEDS ORDERED: KETOTIFEN FUMARATE OP SCH (21:00)
[2019-03-05] MEDS: Budesonide/Formoterol 160/4.5 1 PUFF INH IH SCH (21:48)
[2019-03-05] MEDS ORDERED: Budesonide/Formoterol 160/4.5 1 PUFF INH IH SCH (22:00)
[2019-03-06 01:34] LABS: Mean Corpuscular HGB Conc 33.9 g/dL (31.6-35.5); Mean Corpuscular Hemoglobin 28.6 pg (28.0-33.3); Mean Corpuscular Volume 84.4 fL (83.0-100.0); Mean Platelet Volume 10.2 fL (9.4-12.4); Platelet Count 197 K/mcL (140-400); Red Blood Count 3.91 M/mcL (3.82-4.97); White Blood Count 12.1 K/mcL (4.3-11.1)
[2019-03-06 01:36] LABS: Hemoglobin 11.2 g/dL (11.5-15.4)
[2019-03-06] MEDS: Budesonide/Formoterol 160/4.5 1 PUFF INH IH SCH (07:30)
[2019-03-06 07:53] VITALS: BP 159/80
[2019-03-06] MEDS ORDERED: Acetaminophen 325 MG TABLET PO PRN (08:46)
[2019-03-06] MEDS ORDERED: cefTRIAXone 1,000 MG in 0.9 % Sodium Chloride Mini Bag 100 ML IVPB SCH (09:00)
[2019-03-06] MEDS ORDERED: cefTRIAXone 1,000 MG in Water for inj. (sterile) 10 ML IVP SCH ×2 (11:01→15:00)
== END 2019-03-06 11:42 | disposition home or self-care (01) ==
LOC: EMEROOARM 13:02 → 3BNU 13:02 → SUATTDRO 17:04 → 3BNU 17:23
PROVIDERS: ADMIT Internal Medicine; ATTEND Internal Medicine

== ENCOUNTER 2020-01-20 23:43 | Observation (INO) ==
[2020-01-20] MEDS ORDERED: 0.9 % Sodium Chloride 1,000 ML IVC ONE (23:53)
[2020-01-21 00:41] LABS: Basophils % 0.4 %; Eosinophils # 0.1 K/mcL (0.0-0.6); Eosinophils % 1.1 %; Hematocrit 36.6 % (35.3-44.9); Hemoglobin 11.5 g/dL (11.5-15.4); INR 1.2; Immature Granulocytes % 0.5 % (0-4); Lymphocytes # 1.1 K/mcL (0.6-4.6); Lymphocytes % 11.6 %; Mean Corpuscular HGB Conc 31.4 g/dL (31.6-35.5); Mean Corpuscular Hemoglobin 27.6 pg (28.0-33.3); Mean Corpuscular Volume 87.8 fL (83.0-100.0); Mean Platelet Volume 9.8 fL (9.4-12.4); Monocytes # 0.6 K/mcL (0.0-1.3); Monocytes % 6.4 %; Neutrophils # 7.7 K/mcL (1.6-8.9); Platelet Count 333 K/mcL (140-400); Prothrombin Time 13.7 Seconds (9.4-12.1); Red Blood Count 4.17 M/mcL (3.82-4.97); Red Cell Distribution Width 13.1 % (11.5-14.5); White Blood Count 9.7 K/mcL (4.3-11.1)
[2020-01-21 00:44] LABS: Activated Partial Thrombo Time 28.1 Seconds (26.0-36.0)
[2020-01-21 00:55] LABS: Troponin I < 0.03 ng/mL (< 0.04)
[2020-01-21] MEDS ORDERED: cefTRIAXone 1,000 MG in Water for inj. (sterile) 10 ML IVP ONE (00:59)
[2020-01-21] MEDS ORDERED: Azithromycin 500 MG in 0.9 % Sodium Chloride 250 ML IVPB ONE (00:59)
[2020-01-21 01:45] LABS: Adenovirus Not Detected (Not Detect); Bordetella Pertussis Not Detected (Not Detect); Chlamydophila pneumoniae Not Detected (Not Detect); Coronavirus 229E Not Detected (Not Detect); Coronavirus HKU1 Not Detected (Not Detect); Coronavirus NL63 Not Detected (Not Detect); Coronavirus OC43 Not Detected (Not Detect); Human Metapneumovirus Not Detected (Not Detect); Human Rhinovirus/Enterovirus Not Detected (Not Detect); Influenza A Subtype 2009 H1 Not Detected (Not Detect); Influenza B Not Detected (Not Detect); Mycoplasma pneumoniae Not Detected (Not Detect); Parainfluenza Virus 1 Not Detected (Not Detect); Parainfluenza Virus 2 Not Detected (Not Detect); Parainfluenza Virus 3 Not Detected (Not Detect); Parainfluenza Virus 4 Not Detected (Not Detect); Respiratory Syncytial Virus Not Detected (Not Detect); SARS-CoV-2 Not Detected (Not Detect)
[2020-01-21 01:55] LABS: Bacteria,Urine Few per hpf (None-Few); Bilirubin,Urine Negative (Negative); Blood,Urine Negative (Negative); Clarity,Urine Clear (Clear); Color,Urine Colorless (Yellow); Glucose,Urine (UA) Normal (Normal); Ketones,Urine Negative (Negative); Leukocyte Esterase,Urine Moderate (Negative); Mucus,Urine Few per lpf (None-Few); Nitrite,Urine Negative (Negative); Protein,Urine Negative (Neg-Trace); RBC,Urine 0-3 per hpf (0-3); Specific Gravity,Urine 1.008 (1.010-1.025); Urobilinogen,Urine Normal (Normal); WBC,Urine 30-50 per hpf (0-3)
[2020-01-21] MEDS ORDERED: Acetaminophen IV 1,000 MG/100 ML INFUS..BTL IVPB ONE (03:31)
[2020-01-21] MEDS ORDERED: Naloxone 0.4 MG/ML INJ IVP PRN (03:46)
[2020-01-21] MEDS ORDERED: *HR* HYDROcodone/Acet 5/325 mg TABLET PO PRN (03:46)
[2020-01-21] MEDS ORDERED: Ipratropium/Albuterol Neb 3 ML IH PRN (04:00)
[2020-01-21 04:32] LABS: Alanine Aminotransferase 30 Units/L (7-52); Albumin 3.6 g/dL (3.5-5.7); Albumin/Globulin Ratio 1.2 (1.1-2.2); Alkaline Phosphatase 103 Units/L (34-104); Aspartate Amino Transferase 24 Units/L (13-39); BUN/Creatinine Ratio 19 (6-26); Bilirubin,Total 0.3 mg/dL (0.3-1.0); Blood Urea Nitrogen 15 mg/dL (8-23); Calcium 8.2 mg/dL (8.6-10.3); Carbon Dioxide 24 mEq/L (23-29); Chloride 107 mEq/L (98-107); Globulin 2.9 g/dL (2.4-3.5); Glucose 156 mg/dL (70-105); Magnesium 1.8 mg/dL (1.6-2.6); Osmolality,Calculated 290 (280-300); Phosphorous 2.7 mg/dL (2.7-4.5); Potassium 3.7 mEq/L (3.5-5.1); Sodium 138 mEq/L (136-145); Total Protein 6.5 g/dL (6.4-8.9); eGFR For African Americans > 60 (> 60); eGFR For Non-African Americans > 60 (> 60)
[2020-01-21 05:08] LABS: Hematocrit 35.5 % (35.3-44.9); Hemoglobin 11.3 g/dL (11.5-15.4); Mean Corpuscular HGB Conc 31.8 g/dL (31.6-35.5); Mean Corpuscular Hemoglobin 27.8 pg (28.0-33.3); Mean Corpuscular Volume 87.2 fL (83.0-100.0); Mean Platelet Volume 9.9 fL (9.4-12.4); Platelet Count 275 K/mcL (140-400); Red Blood Count 4.07 M/mcL (3.82-4.97); Red Cell Distribution Width 13.2 % (11.5-14.5); White Blood Count 12.8 K/mcL (4.3-11.1)
[2020-01-21] MEDS: 0.9 % Sodium Chloride 1,000 ML IVC SCH (05:28)
[2020-01-21] MEDS: Acetaminophen 325 MG TABLET PO PRN ×2 (05:28→20:42)
[2020-01-21] MEDS: Insulin LISPRO 300 UNITS/3 ML VIAL SQ SCH ×3 (07:58→16:26)
[2020-01-21] MEDS ORDERED: *HR* Succinylcholine 200 MG/10 ML VIAL IVP ONE (08:00)
[2020-01-21] MEDS ORDERED: *HR* Rocuronium Bromide 50 MG/5 ML VIAL ONE (08:00)
[2020-01-21] MEDS ORDERED: *HR* Propofol 200 MG/20 ML VIAL IVP ONE (08:00)
[2020-01-21] MEDS ORDERED: Lidocaine -MPF 2% 2 ML VIAL ONE (08:00)
[2020-01-21] MEDS ORDERED: Lidocaine -MPF 4% 5 ML AMPUL ONE (08:00)
[2020-01-21] MEDS ORDERED: *HR* FentaNYL (PF) 100 MCG/2 ML VIAL ONE (08:00)
[2020-01-21] MEDS ORDERED: Ondansetron 4 MG/2 ML VIAL ONE (08:00)
[2020-01-21] MEDS ORDERED: Dexamethasone 4 MG/ML VIAL ONE (08:00)
[2020-01-21] MEDS ORDERED: *HR* Promethazine 25 MG/ML VIAL IVP PRN (08:18)
[2020-01-21] MEDS ORDERED: *HR* HYDROmorphone PF 0.5 MG/0.5 ML SYRINGE IVP PRN (08:18)
[2020-01-21] MEDS ORDERED: *HR* OxyCODONE Immed Rel 5 MG TABLET PO PRN (08:18)
[2020-01-21] MEDS ORDERED: Ondansetron 4 MG/2 ML VIAL IVP PRN (08:18)
[2020-01-21] MEDS: Ringers Solution, Lactated 1,000 ML IVC SCH (08:40)
[2020-01-21] MEDS ORDERED: *HR* EPINEPHrine 1 MG/10 ML SYRINGE INTRATRACH PRN (09:33)
[2020-01-21] MEDS ORDERED: Albuterol 2.5 MG/3 ML NEBULIZER ONE (09:41)
[2020-01-21] MEDS: Ipratropium/Albuterol Neb 3 ML IH SCH ×3 (11:38→23:46)
[2020-01-21] MEDS: Budesonide/Formoterol 80/4.5 1 PUFF INH IH SCH ×2 (11:38→20:07)
[2020-01-21 16:23] LABS: Appearance of Body Fluid Cloudy (Clear); Volume of Body Fluid 16 mL
[2020-01-21] MEDS: Benzonatate 100 MG CAPSULE PO PRN (20:42)
[2020-01-21] MEDS ORDERED: *HR* Dextrose 50 % in Water (Vial) 50 ML VIAL IVP PRN (21:51)
[2020-01-21] MEDS ORDERED: Dextrose Gel 15 GM/37.5 ML TUBE PO PRN ×2 (21:51)
[2020-01-21] MEDS ORDERED: D5% in Water 1,000 ML IVC PRN (21:51)
[2020-01-21] MEDS ORDERED: Azithromycin 500 MG in 0.9 % Sodium Chloride 250 ML IVPB SCH (22:00)
[2020-01-21] MEDS ORDERED: Insulin LISPRO 300 UNITS/3 ML VIAL SQ SCH (22:00)
[2020-01-22] MEDS ORDERED: Melatonin 3 MG TABLET PO ONE (00:23)
[2020-01-22] MEDS: 0.9 % Sodium Chloride 1,000 ML IVC SCH (01:26)
[2020-01-22] MEDS: Ringers Solution, Lactated 1,000 ML IVC SCH (05:14)
[2020-01-22] MEDS: Insulin LISPRO 300 UNITS/3 ML VIAL SQ SCH ×2 (08:03→11:22)
[2020-01-22] MEDS ORDERED: Aspirin Enteric Coated 81 MG Tablet PO SCH (09:00)
[2020-01-22] MEDS ORDERED: Fluticasone Propionate Nasal 50 MCG/SPRAY BOTTLE NS SCH (09:00)
[2020-01-22] MEDS ORDERED: cefTRIAXone 1,000 MG in Water for inj. (sterile) 10 ML IVP SCH (09:00)
[2020-01-22] MEDS ORDERED: Loratadine 10 MG TABLET PO SCH (09:00)
[2020-01-22 10:07] VITALS: BP 147/71
[2020-01-22] MEDS: Budesonide/Formoterol 80/4.5 1 PUFF INH IH SCH (10:38)
[2020-01-22] MEDS: Ipratropium/Albuterol Neb 3 ML IH SCH (10:38)
[2020-01-22] MEDS: Benzonatate 100 MG CAPSULE PO PRN (11:26)
[2020-01-22] MEDS ORDERED: levoFLOXacin 750 MG TABLET PO SCH (12:00)
[2020-01-25 12:01] LABS: Mycoplasma pneumoniae IgG 0.16 U/L (<=0.09)
== END 2020-01-22 12:32 | disposition home or self-care (01) ==
LOC: 3ANU 23:43 → EMEROOARM 23:43 → SUATTDRO 01-21 03:46 → 3ANU 01-21 04:06
PROVIDERS: ADMIT Family Medicine; ATTEND Family Medicine